=== PATIENT | female | born 1950 | race Caucasian/White ===

== ENCOUNTER 2021-07-16 05:30 | Inpatient (IN) | payer MEDICARE, OTHER ==
[2021-07-09 15:43] LABS: BASOPHILS # (AUTO) 0.1 X10'3 (0-0.2); BASOPHILS % (AUTO) 1.3 % (0-1); EOSINOPHILS # (AUTO) 0.2 X10'3 (0-0.9); EOSINOPHILS % (AUTO) 3.3 % (0-6); LYMPHOCYTES # (AUTO) 1.4 X10'3 (1.1-4.8); LYMPHOCYTES % (AUTO) 27.9 % (21-51); MEAN CORPUSCULAR HEMOGLOBIN 30.7 PG (27.0-31.0); MEAN CORPUSCULAR HGB CONC 34.7 g/dL (33.0-36.5); MEAN CORPUSCULAR VOLUME 88.3 FL (78-98); MEAN PLATELET VOLUME 6.6 FL (7.4-10.4); MONOCYTES # (AUTO) 0.7 X10'3 (0-0.9); MONOCYTES % (AUTO) 14.7 % (2-12); NEUTROPHILS # (AUTO) 2.7 X10'3 (1.8-7.7); NEUTROPHILS % (AUTO) 52.8 % (42-75); PRE OP HEMATOCRIT 36.9 % (35.0-45.0); PRE OP HEMOGLOBIN 12.8 g/dL (12.0-16.0); PRE OP PLATELET COUNT 308 X10'3 (140-440); RED BLOOD COUNT 4.18 X10'6 (4.20-5.60)
[2021-07-09 15:54] LABS: PRE OP PROTIME 10.4 SECONDS (9.0-12.0)
[2021-07-09 15:55] LABS: ALKALINE PHOSPHATASE 186 IU/L (46-116); BLOOD UREA NITROGEN 17 MG/DL (7-18); BUN/CREATININE RATIO 26.6 (6.6-38.0); CALCIUM 8.5 MG/DL (8.5-10.1); CHLORIDE 91 MMOL/L (99-107); CREATININE 0.64 MG/DL (0.40-0.90); PRE OP ALT 26 U/L (30-65); PRE OP ANION GAP 6 (8-16); PRE OP AST 24 U/L (10-37); PRE OP BILIRUB, TOTAL 0.3 MG/DL (0.0-1.0); PRE OP GLUCOSE 85 MG/DL (70-104); TOTAL CARBON DIOXIDE 29.7 MMOL/L (24-32); TOTAL PROTEIN 7.9 G/DL (6.4-8.2); eGFR > 90 ML/MIN
[2021-07-09 16:07] LABS: PRE OP SODIUM 127 MMOL/L (135-145)
[2021-07-16] VITALS (11 sets, daily range): BP systolic 108–167; BP diastolic 51–89
[~2021-07-16] VITALS: Ht 160 cm; Wt 66.8 kg
[~2021-07-16 05:30] MED LIST: ALPR1TAB7 PO; AMLO5TAB16 PO; BUPR1PAT20 TD; DOCUMENT DATE & TIME OF BETA-BLOCKER PO ONE; DULO60CA65 PO; ESTR1TAB28 PO; FLO0.4C; GABA-530 PO; HYDR-3965 PO; LOSA1TAB41 PO; METO-395 PO; ONDA8TAB13 PO; PHEN100C12 PO; TIZA-205 PO; VANCOMYCIN INJ 1000 MG in NORMAL SALINE 250ml IV.SOLN IV ONE; cefazolin/dext.iso 2gm/50ml 50 ML IV ONE; famotidine 20mg tablet PO ONE; ringers solution, lacted 1,000 ML IV SCH
[2021-07-16 06:52] LABS: ISTAT ANION GAP 12 (8-12); ISTAT BUN 20 mg/dL (7-18); ISTAT CL 94 mmol/L (99-107); ISTAT CREATININE 0.5 mg/dL (0.6-1.1); ISTAT GLUCOSE 96 mg/dL (70-105); ISTAT HGB 12.6 g/dl (12.0-16.0); ISTAT Hct 37 %PCV (35-48); ISTAT IONIZED CALCIUM 1.23 mmol/L (1.03-1.32); ISTAT K 3.9 mmol/L (3.5-5.1); ISTAT NA 132 mmol/L (135-145); ISTAT TOTAL CO2 26 mmol/L (24-32); ISTAT eGFR > 90 ML/MIN
[2021-07-16] MEDS ORDERED: vancomycin 1,000mg inj ONE ×3 (06:57→09:16)
[2021-07-16] MEDS ORDERED: fentaNYL/PF 50MCG/1 ML 2ML syringe ONE (07:26)
[2021-07-16] MEDS ORDERED: MIDAZolam 1 MG/ML 5ML VIAL ONE ×2 (07:26→08:50)
[2021-07-16] MEDS ORDERED: BUPIVAcaine/PF 7.5mg/ml (0.75%) 10ml vial ONE (07:42)
[2021-07-16] MEDS ORDERED: propofol inj 20 ML IV ONE (07:42)
[2021-07-16] MEDS ORDERED: ringers solution, lacted 1,000 ML IV SCH (09:20)
[2021-07-16] MEDS ORDERED: morphine 4 MG/ML inj SYRINge IV PRN (09:20)
[2021-07-16] MEDS ORDERED: proCHLORperazine 10 MG/2 ml inj IV PRN (09:20)
[2021-07-16] MEDS ORDERED: morphine 2 MG/ML inj. syringe IV PRN (09:20)
[2021-07-16] MEDS ORDERED: meperidine/PF 25mg/ml syringe IV PRN ×3 (09:20)
[2021-07-16] MEDS ORDERED: ondansetron/PF 4mg/2ml inj IV PRN ×2 (09:20→10:05)
--- NOTE | 2021-07-16 09:52 | NUR ---
Received from OR via bed , accompanied by Anesthesiologist Dr. Saab and report given by Anesthesiolgist and OR nurse. PT ARRIVED DROWSY BUT STABLE ON ROOM AIR. 18G IV TO LEFT HAND. LEFT HIP DRESSING C/D/I. ABDUCTOR PILLOW BETWEEN LEGS. PEDAL PULSES ASSESSED AND WITHIN NORMAL LIMITS AND MARKED. VSS. Addendum: 07/16/21 at 1016 by Teresa Jarrell RN Amended: Links added.
[2021-07-16] MEDS ORDERED: ALPRAZolam 0.5mg tablet PO PRN (10:00)
[2021-07-16] MEDS ORDERED: bisacodyl 10mg suppository rectal RC PRN (10:05)
[2021-07-16] MEDS ORDERED: HYDROcodone/acetaminophen 10/325mg tab PO PRN (10:05)
[2021-07-16] MEDS ORDERED: magnesium hydroxide 30ml (MOM) UD suspension PO PRN (10:05)
[2021-07-16] MEDS ORDERED: diphenhydrAMINE 25mg capsule PO PRN ×2 (10:05)
[2021-07-16] MEDS ORDERED: acetaminophen 325mg tablet PO PRN (10:05)
--- NOTE | 2021-07-16 11:02 | NUR ---
Report called to receiving nurse FOR[facility]. Transferred via BED. Belongings, AND CLOTHING SENT WITH PT TO ROOM. Special Issues communicated to receiving nurse. RIGHT BEFORE TRANSFER, PT WOKE UP AND STATED SHE HAD 8/10 PAIN. PT MEDICATED FOR PAIN WITH MORPHINE PRIOR TO TRANSFER. WHEN ARRIVING TO THE UNIT, NOTIFIED CHARGE NURSE AYE THAT PT STILL HAD 8/10 PAIN. AYE TOOK THE MESSAGE TO PASS ON TO THE PRIMARY RN. PT VSS. DRESSING STILL C/D/I. NURSE AID AT BEDSIDE TO ASSUME CARE. BED IN LOW POSITION, 2 RAILS UP, CALL LIGHT IN REACH. Addendum: 07/16/21 at 1121 by Teresa Jarrell RN Amended: Links added.
--- NOTE | 2021-07-16 11:10 | NUR ---
Pt arrived to room 357B via bed from recovery. Pt extremely painful following Morphine administration moments before arrival. Dialaudid was given for 10/10 pain. Spouse at bedside. Cathi De Dios is on unit and following. Order for ativan to be given. Bed low, call light in reach. dressing C&D.
[2021-07-16] MEDS: HYDROmorphone 1 mg/ml syringe IV PRN (11:20)
[2021-07-16] MEDS ORDERED: tranexamic acid inj. 680 MG in normal saline 100ml IV soln 100 ML IV ONE (11:30)
[2021-07-16] MEDS ORDERED: ALPRAZolam 0.25mg tablet PO STA (12:05)
[2021-07-16] MEDS ORDERED: LORazepam 2 mg/ml vial IV ONE (12:10)
[2021-07-16] MEDS: ceFAZolin/D5W- 1GM premix 50 ML IV SCH (16:46)
[2021-07-16] MEDS: ketorolac tromethamine 15mg/ml inj. IV SCH ×2 (16:47→22:37)
[2021-07-16] MEDS: potassium Cl 20mEq in NS 1,000 ML IV SCH ×2 (16:54→23:25)
--- NOTE | 2021-07-16 17:50 | NUR ---
Post op VS machine after first BP taken. last taken pt vss
--- NOTE | 2021-07-16 18:30 | NUR ---
Problems reprioritized. Patient report given, questions answered & plan of care reviewed with CARLOS Rossi.
[2021-07-16] MEDS ORDERED: vancomycin/NS 1 GM ADD-VANTAGE 250 ML IV SCH (20:00)
[2021-07-16] MEDS: tamsulosin 0.4mg capsule PO SCH (21:00)
[2021-07-16] MEDS: HYDROchlorothiazide 12.5mg capsule PO SCH (21:00)
[2021-07-16] MEDS: duloxetine 30mg CAPSULE.DR PO SCH (21:00)
[2021-07-16] MEDS: tizanidine 4mg tablet PO SCH (21:10)
[2021-07-16] MEDS: amLODIPine 5mg tablet PO SCH (21:11)
[2021-07-16] MEDS: metoprolol succinate 25mg (24-HOUR) SR. Tablet PO SCH (21:11)
[2021-07-16] MEDS: sennosides 8.6mg tablet PO SCH (21:11)
[2021-07-16] MEDS: losartan 50mg tablet PO SCH (21:12)
[2021-07-16] MEDS: estradiol 1mg tablet PO SCH (21:12)
[2021-07-16] MEDS: phenytoin sod ER 100mg capsule PO SCH (22:36)
[2021-07-17] VITALS: BP 121/47
[2021-07-17] MEDS: ceFAZolin/D5W- 1GM premix 50 ML IV SCH (00:28)
[2021-07-17] MEDS: ondansetron 4mg rapidly disintigrating tab PO PRN (00:28)
[2021-07-17] MEDS: ketorolac tromethamine 15mg/ml inj. IV SCH ×3 (02:00→14:00)
[2021-07-17 06:21] LABS: BASOPHILS % (AUTO) 0.5 % (0-1); EOSINOPHILS # (AUTO) 0.1 X10'3 (0-0.9); EOSINOPHILS % (AUTO) 0.9 % (0-6); HEMATOCRIT 29.7 % (35.0-45.0); HEMOGLOBIN 10.6 g/dl (12.0-16.0); LYMPHOCYTES % (AUTO) 17.1 % (21-51); MEAN CORPUSCULAR HEMOGLOBIN 31.5 PG (27.0-31.0); MEAN CORPUSCULAR HGB CONC 35.6 g/dL (33.0-36.5); MEAN CORPUSCULAR VOLUME 88.6 FL (78-98); MEAN PLATELET VOLUME 6.9 FL (7.4-10.4); MONOCYTES # (AUTO) 0.8 X10'3 (0-0.9); MONOCYTES % (AUTO) 12.9 % (2-12); NEUTROPHILS % (AUTO) 68.6 % (42-75); PLATELET COUNT 229 X10'3 (140-440); RED BLOOD COUNT 3.35 X10'6 (4.20-5.60); RED CELL DISTRIBUTION WIDTH 13.8 % (11.5-14.5); WHITE BLOOD COUNT 5.8 X10'3 (4.5-11.0)
--- NOTE | 2021-07-17 06:28 | NUR ---
Problems reprioritized. Patient report given, questions answered & plan of care reviewed with CARLOS Alvarez.
[2021-07-17 06:39] LABS: ALANINE AMINOTRANSFERASE 22 U/L (12-78); ALBUMIN 2.8 G/DL (3.4-5.0); ALBUMIN/GLOBULIN RATIO 0.9 (1.1-1.5); ALKALINE PHOSPHATASE 116 IU/L (46-116); ANION GAP 9 (8-16); ASPARTATE AMINO TRANSFERASE 26 U/L (10-37); BILIRUBIN,TOTAL 0.5 MG/DL (0.1-1.0); BLOOD UREA NITROGEN 14 MG/DL (7-18); BUN/CREATININE RATIO 18.7 (6.6-38.0); CALCIUM 7.6 MG/DL (8.5-10.1); CHLORIDE 99 MMOL/L (99-107); CREATININE 0.75 MG/DL (0.40-0.90); GLUCOSE 105 MG/DL (70-104); POTASSIUM 4.1 MMOL/L (3.5-5.1); SODIUM 135 MMOL/L (135-145); TOTAL CARBON DIOXIDE 27.2 MMOL/L (24-32); TOTAL PROTEIN 5.9 G/DL (6.4-8.2); eGFR 76 ML/MIN
[2021-07-17] MEDS: aspirin 81mg, enteric-coated 1 TAB TABLET.DR PO SCH (06:59)
[2021-07-17] MEDS: HYDROcodone/acetaminophen 10/325mg tab PO PRN ×3 (06:59→21:25)
[2021-07-17 07:00] VITALS: BP 123/46
[2021-07-17 12:00] VITALS: BP 129/60
[2021-07-17] MEDS: potassium Cl 20mEq in NS 1,000 ML IV SCH (12:09)
[2021-07-17] MEDS: HYDROmorphone 1 mg/ml syringe IV PRN (13:34)
[2021-07-17] MEDS ORDERED: ASPI-1071 PO (15:52)
--- NOTE | 2021-07-17 18:30 | NUR ---
Patient in room [facility]. I have received report from APRIL GONZALEZ and had the opportunity to ask questions and assume patient care.
[2021-07-17 20:00] VITALS: BP 150/65
[2021-07-17] MEDS: tizanidine 4mg tablet PO SCH (20:03)
[2021-07-17] MEDS: duloxetine 30mg CAPSULE.DR PO SCH (20:03)
[2021-07-17] MEDS: tamsulosin 0.4mg capsule PO SCH (20:04)
[2021-07-17] MEDS: metoprolol succinate 25mg (24-HOUR) SR. Tablet PO SCH (20:05)
[2021-07-17] MEDS: losartan 50mg tablet PO SCH (20:05)
[2021-07-17] MEDS: amLODIPine 5mg tablet PO SCH (20:06)
[2021-07-17] MEDS: phenytoin sod ER 100mg capsule PO SCH (20:06)
[2021-07-17] MEDS: estradiol 1mg tablet PO SCH (20:08)
[2021-07-17] MEDS: sennosides 8.6mg tablet PO SCH (20:09)
[2021-07-17] MEDS: HYDROchlorothiazide 12.5mg capsule PO SCH (20:10)
[2021-07-18] VITALS: BP 114/58
[2021-07-18] MEDS: ondansetron 4mg rapidly disintigrating tab PO PRN (00:47)
[2021-07-18] MEDS: potassium Cl 20mEq in NS 1,000 ML IV SCH (02:05)
--- NOTE | 2021-07-18 06:14 | NUR ---
Problems reprioritized. Patient report given, questions answered & plan of care reviewed with APRIL GONZALEZ.
[2021-07-18 06:51] LABS: BASOPHILS % (AUTO) 0.5 % (0-1); EOSINOPHILS # (AUTO) 0.1 X10'3 (0-0.9); EOSINOPHILS % (AUTO) 1.5 % (0-6); HEMATOCRIT 25.6 % (35.0-45.0); LYMPHOCYTES # (AUTO) 1.3 X10'3 (1.1-4.8); MEAN CORPUSCULAR HEMOGLOBIN 31.3 PG (27.0-31.0); MEAN CORPUSCULAR HGB CONC 35.2 g/dL (33.0-36.5); MEAN CORPUSCULAR VOLUME 89.1 FL (78-98); MEAN PLATELET VOLUME 7.1 FL (7.4-10.4); MONOCYTES # (AUTO) 0.9 X10'3 (0-0.9); MONOCYTES % (AUTO) 12.1 % (2-12); NEUTROPHILS # (AUTO) 4.8 X10'3 (1.8-7.7); NEUTROPHILS % (AUTO) 67.9 % (42-75); PLATELET COUNT 207 X10'3 (140-440); RED BLOOD COUNT 2.88 X10'6 (4.20-5.60); RED CELL DISTRIBUTION WIDTH 13.8 % (11.5-14.5)
[2021-07-18 07:00] VITALS: BP 121/53
[2021-07-18] MEDS: aspirin 81mg, enteric-coated 1 TAB TABLET.DR PO SCH (07:07)
[2021-07-18 07:16] LABS: ALANINE AMINOTRANSFERASE 34 U/L (12-78); ALBUMIN 2.6 G/DL (3.4-5.0); ALBUMIN/GLOBULIN RATIO 0.8 (1.1-1.5); ALKALINE PHOSPHATASE 109 IU/L (46-116); ANION GAP 8 (8-16); ASPARTATE AMINO TRANSFERASE 50 U/L (10-37); BILIRUBIN,TOTAL 0.4 MG/DL (0.1-1.0); BLOOD UREA NITROGEN 14 MG/DL (7-18); BUN/CREATININE RATIO 20.3 (6.6-38.0); CALCIUM 7.7 MG/DL (8.5-10.1); CHLORIDE 102 MMOL/L (99-107); CREATININE 0.69 MG/DL (0.40-0.90); GLUCOSE 111 MG/DL (70-104); SODIUM 135 MMOL/L (135-145); TOTAL CARBON DIOXIDE 25.1 MMOL/L (24-32); TOTAL PROTEIN 5.8 G/DL (6.4-8.2); eGFR 84 ML/MIN
[2021-07-18] MEDS: HYDROcodone/acetaminophen 10/325mg tab PO PRN ×2 (07:17→16:22)
[2021-07-18 12:06] VITALS: BP 117/66
--- NOTE | 2021-07-18 16:37 | NUR ---
Pt received dc instructions, reviewed with patient and . pt instructed to call for follow up. Pt has all belongings and her 2 koolpaks.
== END 2021-07-18 17:00 | disposition home or self-care (01) | DRG 470 ==
LOC: PAS 05:30 → EDSTATUS 07:30 → PAS 10:08 → SUR 3N 10:08 → PAS 14:00 → SUR 3N 14:00 → PAS 07-17 15:52 → SUR 3N 07-18 17:00 → PAS 07-18 17:00
PROVIDERS: ADMIT Orthopaedic Surgery; ATTEND Orthopaedic Surgery
PROC: 0SRB06Z Replacement of Left Hip Joint with Oxidized Zirconium on Polyethylene Synthetic Substitute, Open Approach (ICD-10-PCS; principal; 2021-07-16 07:21)
DX: M16.12 Unilateral primary osteoarthritis, left hip (principal)
CPT/HCPCS: 36415; 80047; 80053; 85025; 85610; 85730; 86885; 86900; 86901; 86920; 87081; 97110; 97116; 97530; A4618; A6258; A6449; A7000; A9272; C1758; C1776; G0378; J0690; J1170; J1885; J2060; J2250; J2270; J2405; J2704; J3010; J3370; J3480; J3490; J7120; U0003; U0005

== ENCOUNTER 2022-04-26 10:17 | Emergency (ER) | payer MEDICARE, OTHER ==
[~2022-04-26] VITALS: Ht 160 cm; Wt 63.6 kg
[~2022-04-26 10:17] MED LIST changes: +ASPI-1071 PO; -BUPR1PAT20 TD; -DOCUMENT DATE & TIME OF BETA-BLOCKER PO ONE; -GABA-530 PO; -HYDR-3965 PO; -VANCOMYCIN INJ 1000 MG in NORMAL SALINE 250ml IV.SOLN IV ONE; -cefazolin/dext.iso 2gm/50ml 50 ML IV ONE; -famotidine 20mg tablet PO ONE; -ringers solution, lacted 1,000 ML IV SCH
[2022-04-26 10:28] VITALS: BP 165/72
[2022-04-26 10:47] LABS: BASOPHILS # (AUTO) 0.1 X10'3 (0-0.2); BASOPHILS % (AUTO) 1.1 % (0-1); EOSINOPHILS # (AUTO) 0.1 X10'3 (0-0.9); EOSINOPHILS % (AUTO) 0.7 % (0-6); HEMATOCRIT 39.2 % (35.0-45.0); HEMOGLOBIN 13.4 g/dl (12.0-16.0); LYMPHOCYTES # (AUTO) 0.8 X10'3 (1.1-4.8); LYMPHOCYTES % (AUTO) 10.3 % (21-51); MEAN CORPUSCULAR HEMOGLOBIN 30.3 PG (27.0-31.0); MEAN CORPUSCULAR HGB CONC 34.2 g/dL (33.0-36.5); MEAN CORPUSCULAR VOLUME 88.7 FL (78-98); MEAN PLATELET VOLUME 6.8 FL (7.4-10.4); MONOCYTES # (AUTO) 0.5 X10'3 (0-0.9); MONOCYTES % (AUTO) 6.7 % (2-12); NEUTROPHILS % (AUTO) 81.2 % (42-75); PLATELET COUNT 314 X10'3 (140-440); RED BLOOD COUNT 4.42 X10'6 (4.20-5.60); WHITE BLOOD COUNT 7.4 X10'3 (4.5-11.0)
[2022-04-26 11:01] LABS: ALANINE AMINOTRANSFERASE 24 U/L (12-78); ALBUMIN 4.1 G/DL (3.4-5.0); ALKALINE PHOSPHATASE 135 IU/L (46-116); ANION GAP 10 (8-16); ASPARTATE AMINO TRANSFERASE 20 U/L (10-37); BILIRUBIN,TOTAL 0.4 MG/DL (0.1-1.0); BLOOD UREA NITROGEN 16 MG/DL (7-18); BUN/CREATININE RATIO 19.3 (6.6-38.0); CALCIUM 9.2 MG/DL (8.5-10.1); CHLORIDE 97 MMOL/L (99-107); CREATININE 0.83 MG/DL (0.40-0.90); GLUCOSE 113 MG/DL (70-104); LIPASE 63 U/L (73-393); POTASSIUM 3.6 MMOL/L (3.5-5.1); SODIUM 133 MMOL/L (135-145); TOTAL CARBON DIOXIDE 26.2 MMOL/L (24-32); TOTAL PROTEIN 8.2 G/DL (6.4-8.2); eGFR 67 ML/MIN
[2022-04-26] MEDS ORDERED: normal saline 1000ML IV soln IVB ONE (12:30)
[2022-04-26] MEDS ORDERED: ondansetron/PF 4mg/2ml inj IV ONE (12:30)
== END 2022-04-26 14:00 | disposition home or self-care (01) ==
LOC: ER 10:17
DX: R11.2 Nausea with vomiting, unspecified (principal); K21.9 Gastro-esophageal reflux disease without esophagitis; Z79.82 Long term (current) use of aspirin; Z79.899 Other long term (current) drug therapy
CPT/HCPCS: 36415; 80053; 83690; 85025; 96374; 99283; J2405; J7030

== ENCOUNTER 2022-11-05 09:24 | Emergency (ER) | payer MEDICARE, OTHER ==
[~2022-11-05] VITALS: Ht 160 cm; Wt 63.0 kg
--- NOTE | 2022-11-05 09:57 | NUR ---
PT STATES HAS TAKEN ONE NORCO 5, ONE ZANAFLEX AND A SMALL AMT OF ETOH SUPERVISOR MICROFILM DUPLICATING UNIT. SHE ALSO HAS A BUTRANS PATCH TO HER LEFT BICEP ADMINISTERING 20 MCG/HR. PER PT PATCH WAS PLACED LAST TUESDAY AND SHE CHANGES IT ONCE WEEKLY.
[2022-11-05] MEDS ORDERED: morphine 4 MG/ML inj SYRINge IM ONE (10:10)
--- NOTE | 2022-11-05 10:40 | NUR ---
PT STATES THAT AFTER SHE RECEIVED HER MORPHINE INJECTION FOR DISCOMFORT SHE STARTED FEELING NAUSEATED AND TOOK ONE OF HER PERSONAL RX ZOFRAN TABLETS. PT WAS ADVISED TO NO LONGER TAKE HER OWN MEDICATION WHILE SHE WAS IN THE ER WITHOUT DISCUSSING IT WITH HER RN OR PROVIDER. DR JACQUES NOTIFIED
[2022-11-05] MEDS ORDERED: proCHLORperazine 10 MG/2 ml inj IM ONE (10:50)
[2022-11-05] MEDS ORDERED: HYDR-3972 PO (11:32)
[2022-11-05 11:38] VITALS: BP 150/68
[2022-11-06] MEDS ORDERED: HYDR-3972 PO (09:12)
== END 2022-11-05 11:40 | disposition home or self-care (01) ==
LOC: ER 09:25
DX: M25.511 Pain in right shoulder (principal); M54.2 Cervicalgia; M79.18 Myalgia, other site; K21.9 Gastro-esophageal reflux disease without esophagitis; Z79.899 Other long term (current) drug therapy; Z79.1 Long term (current) use of non-steroidal anti-inflammatories (NSAID); Z79.82 Long term (current) use of aspirin
CPT/HCPCS: 96372; 99284; J0780; J2270

== ENCOUNTER 2023-08-29 17:21 | Emergency (ER) | payer MEDICARE, OTHER ==
[~2023-08-29] VITALS: Ht 160 cm; Wt 62.6 kg
[2023-08-29] MEDS ORDERED: normal saline 1000ML IV soln IVB ONE (17:35)
[2023-08-29] MEDS ORDERED: ondansetron/PF 4mg/2ml inj IV ONE (17:35)
[2023-08-29 18:00] LABS: BASOPHILS # (AUTO) 0.1 X10'3 (0-0.2); EOSINOPHILS % (AUTO) 0.7 % (0-6); HEMATOCRIT 39.7 % (35.0-45.0); HEMOGLOBIN 13.4 g/dl (12.0-16.0); LYMPHOCYTES # (AUTO) 0.9 X10'3 (1.1-4.8); LYMPHOCYTES % (AUTO) 14.6 % (21-51); MEAN CORPUSCULAR HEMOGLOBIN 30.1 PG (27.0-31.0); MEAN CORPUSCULAR HGB CONC 33.8 g/dL (33.0-36.5); MEAN CORPUSCULAR VOLUME 89.2 FL (78-98); MONOCYTES # (AUTO) 0.5 X10'3 (0-0.9); MONOCYTES % (AUTO) 8.2 % (2-12); NEUTROPHILS # (AUTO) 4.7 X10'3 (1.8-7.7); NEUTROPHILS % (AUTO) 75.5 % (42-75); PLATELET COUNT 331 X10'3 (140-440); RED BLOOD COUNT 4.45 X10'6 (4.20-5.60); WHITE BLOOD COUNT 6.2 X10'3 (4.5-11.0)
[2023-08-29 18:15] LABS: ALANINE AMINOTRANSFERASE 25 U/L (12-78); ALBUMIN 4.2 G/DL (3.4-5.0); ALKALINE PHOSPHATASE 160 IU/L (46-116); AMYLASE 72 U/L (25-115); ANION GAP 11 (8-16); ASPARTATE AMINO TRANSFERASE 25 U/L (10-37); BILIRUBIN,TOTAL 0.4 MG/DL (0.1-1.0); BLOOD UREA NITROGEN 15 MG/DL (7-18); BUN/CREATININE RATIO 14.9 (10.0-20.0); CALCIUM 9.3 MG/DL (8.5-10.1); CHLORIDE 93 MMOL/L (99-107); CREATININE 1.01 MG/DL (0.40-0.90); GLUCOSE 113 MG/DL (70-104); LIPASE 23 U/L (16-77); POTASSIUM 3.6 MMOL/L (3.5-5.1); SODIUM 132 MMOL/L (135-145); TOTAL CARBON DIOXIDE 28.2 MMOL/L (24-32); TOTAL PROTEIN 8.4 G/DL (6.4-8.2); eCRCL 40 ML/MIN; eGFR 54 ML/MIN
[2023-08-29] MEDS ORDERED: diphenhydrAMINE 50 mg/ml inj IV ONE (20:05)
[2023-08-29] MEDS ORDERED: metoclopramide 5 mg/ml inj IV ONE (20:05)
[2023-08-29] MEDS ORDERED: phenytoin sod 50mg/ml 2ml vial IV STA (21:14)
[2023-08-29 22:50] VITALS: BP 135/70; PULSE 99; RESP 16; TEMP 98.2; O2SAT 99
== END 2023-08-29 22:53 | disposition home or self-care (01) ==
LOC: ER 17:22
DX: R11.2 Nausea with vomiting, unspecified (principal); N39.0 Urinary tract infection, site not specified; K21.9 Gastro-esophageal reflux disease without esophagitis; Z79.899 Other long term (current) drug therapy; Z79.82 Long term (current) use of aspirin
CPT/HCPCS: 36415; 71045; 80053; 82150; 83690; 85025; 96374; 96375; 99284; J1165; J1200; J2405; J2765; J7030